=== PATIENT | female | born 2000 | race Two or more races ===

== ENCOUNTER 2021-07-13 11:55 | Emergency (ER) | payer MEDICAID ==
[~2021-07-13] VITALS: Ht 165.1 cm; Wt 66.7 kg
[2021-07-13 12:26] LABS: Urine Bacteria FEW /hpf (None Seen); Urine Blood Negative /uL (Negative); Urine Specific Gravity 1.016 (1.001-1.035); Urine WBC 38 /hpf (0 - 5)
[2021-07-13 14:05] VITALS: BP 122/77
[2021-07-13 14:43] LABS: Basophils # (auto) 0 10 ^3/uL (0-0.2); Basophils % (auto) 0.3 % (0.0-2.0); Eosinophils # (auto) 0 10 ^3/uL (0-0.8); Eosinophils % (auto) 0.6 % (0.0-7.0); Hematocrit 38.2 % (36.0-46.0); Hemoglobin 12.6 g/dL (12.2-16.2); Lymphocytes # (auto) 1.5 10 ^3/uL (0.4-5.4); Lymphocytes % (auto) 26.9 % (10.0-50.0); Mean Corpuscular Hemoglobin 29.5 pg (28.0-32.0); Mean Corpuscular Hgb Conc. 32.9 g/dL (32.0-36.0); Mean Corpuscular Volume 89.6 fL (80.0-100.0); Monocytes # (auto) 0.4 10 ^3/uL (0-1.3); Monocytes % (auto) 7.7 % (0.0-12.0); Neutrophils # (auto) 3.5 10 ^3/uL (1.6-8.6); Neutrophils % (auto) 64.5 % (37.0-80.0); Red Blood Cells 4.27 10^6/uL (4.0-5.20); Red Cell Distribution Width 13.8 % (11.8-14.3); White Blood Cell 5.5 10^3/uL (4.4-10.8)
== END 2021-07-13 16:06 | disposition home or self-care (01) ==
LOC: ER 11:55
DX: O23.11 Infections of bladder in pregnancy, first trimester (principal); Z3A.00 Weeks of gestation of pregnancy not specified
CPT/HCPCS: 36415; 76801; 76817; 81001; 81025; 84702; 85025

== ENCOUNTER 2023-06-21 02:29 | Emergency (ER) | payer MEDICAID ==
[~2023-06-21] VITALS: Ht 167.6 cm; Wt 72.7 kg
[2023-06-21 03:50] LABS: Basophils # (auto) 0 10 ^3/uL (0-0.2); Basophils % (auto) 0.5 % (0.0-2.0); Eosinophils # (auto) 0 10 ^3/uL (0-0.8); Eosinophils % (auto) 0.3 % (0.0-7.0); Hematocrit 39.9 % (36.0-46.0); Hemoglobin 13.4 g/dL (12.2-16.2); Lymphocytes # (auto) 1.6 10 ^3/uL (0.4-5.4); Lymphocytes % (auto) 19.4 % (10.0-50.0); Mean Corpuscular Hemoglobin 30.2 pg (28.0-32.0); Mean Corpuscular Hgb Conc. 33.6 g/dL (32.0-36.0); Mean Corpuscular Volume 89.9 fL (80.0-100.0); Monocytes # (auto) 0.5 10 ^3/uL (0-1.3); Neutrophils # (auto) 6.1 10 ^3/uL (1.6-8.6); Neutrophils % (auto) 73.8 % (37.0-80.0); Red Blood Cells 4.44 10^6/uL (4.0-5.20); Red Cell Distribution Width 14.1 % (11.8-14.3); White Blood Cell 8.2 10^3/uL (4.4-10.8)
[2023-06-21 04:08] LABS: Alanine Aminotransferase 10 U/L (7-40); Albumin 4.4 g/dL (3.2-4.8); Alkaline Phosphatase 49 U/L (46-116); Anion Gap 6 (5-15); Aspartate Aminotransferase 8 U/L (13-40); Blood Urea Nitrogen 6 mg/dL (9-23); Calcium 9.2 mg/dL (8.7-10.4); Carbon Dioxide 26 mmol/L (20-30); Chloride 107 mmol/L (98-107); Potassium 4.1 mmol/L (3.5-5.1); Sodium 139 mmol/L (136-145)
[2023-06-21 04:09] LABS: Bilirubin, Total 0.6 mg/dL (0.2-1.0); Total Protein 7.1 g/dL (5.7-8.2)
[2023-06-21 04:30] LABS: Glucose 103 mg/dL (74-106)
[2023-06-21] MEDS ORDERED: NAP500T GT (05:16)
[2023-06-21 05:30] VITALS: BP 112/69; PULSE 71; RESP 13; TEMP 97.9; O2SAT 98
== END 2023-06-21 05:37 | disposition home or self-care (01) ==
LOC: ER 02:29
DX: R51.9 Headache, unspecified (principal); R10.2 Pelvic and perineal pain; M79.602 Pain in left arm; M25.512 Pain in left shoulder; M25.552 Pain in left hip; Z79.899 Other long term (current) drug therapy; V49.9XXA Car occupant (driver) (passenger) injured in unspecified traffic accident, initial encounter; Y93.89 Activity, other specified; Y92.410 Unspecified street and highway as the place of occurrence of the external cause; Y99.8 Other external cause status
CPT/HCPCS: 36415; 70450; 72125; 73080; 73502; 80053; 84702; 85025

== ENCOUNTER 2025-03-02 09:01 | Emergency (ER) | payer MEDICAID ==
[~2025-03-02] VITALS: Ht 167.6 cm; Wt 66.0 kg
[~2025-03-02 09:01] MED LIST: NAP500T GT
[2025-03-02 09:56] VITALS: TEMP 98
--- NOTE | 2025-03-02 09:57 | ED.PDOC ---
History of Present Illness HPI Comments 24-year-old female presents to the ER no prior medical history associates chief complaint vaginal bleeding. Patient assumes that she is having a miscarriage do from having abnormal vaginal bleeding after being . Patient states that her LMP was January 07. Patient notes on having back pain with cramping in the abdomen area with taking was. Patient is currently M1. Denies chills, fever, N/V/D, SOB, CP. No other associated symptoms, modifiers, recent injuries or sick contacts present at this time. Chief Complaint: Vaginal Bleed Time Seen by MD: 09:25 Primary Care Provider: [facility] Reviewed Notes: Nurses Notes, Medications, Allergies Allergies: Coded Allergies: NO KNOWN ALLERGIES (Unverified , 07/13/21) Home Meds Active Scripts Naproxen (NAPROSYN TABLET) 500 Mg Tb, 500 MG GT BIDPRN PRN for 7 Days, #14 TAB Prov:ALBER BRADLEY MD 06/21/23 Information Source: Patient Mode of Arrival: Ambulatory Severity: Moderate Duration: Since onset Prehospital treatment: None Past Medical History PAST MEDICAL HISTORY: Denies Surgical History: Denies all surgeries LAMINATOR History: No Pertinent LAMINATOR History Family History Family History: Reviewed,noncontributory to illness, Unknown Social History Smoker: Non-Smoker Alcohol: Denies ETOH Use Drugs: Denies Drug Use Lives In: Home Constitutional: denies: chills, diaphoresis, fatigue, fever, malaise, sweats, weakness, others EENTM: denies: blurred vision, double vision, ear bleeding, ear discharge, ear drainage, ear pain, ear ringing, eye pain, eye redness, hearing loss, mouth pain, mouth swelling, nasal discharge, nose bleeding, nose congestion, nose pain, photophobia, tearing, throat pain, throat swelling, voice changes, others Respiratory: denies: cough, hemoptysis, orthopnea, SOB at rest, shortness of breath, SOB with excertion, stridor, wheezing, others Cardiovascular: denies: chest pain, dizzy spells, diaphoresis, Dyspnea on exertion, edema, irregular heart beat, left arm pain, lightheadedness, palpitations, PND, syncope, others Gastrointestinal: denies: abdomen distended, abdominal pain, blood streaked bowels, constipated, diarrhea, dysphagia, difficulty swallowing, hematemesis, melena, nausea, poor appetite, poor fluid intake, rectal bleeding, rectal pain, vomiting, others Genitourinary: reports: abnormal vagina bleeding, ; denies: burning, dyspareunia, dysuria, flank pain, frequency, hematuria, incontinence, pain, vagina discharge, urgency, others Neurological: denies: dizziness, fainting, headache, left sided numbness, left sided weakness, numbness, paresthesia, pre-existing deficit, right sided numbness, right sided weakness, seizure, speech problems, tingling, tremors, weakness, others Musculoskeletal: denies: back pain, gout, joint pain, joint swelling, muscle pain, muscle stiffness, neck pain, others Integumetry: denies: bruises, change in color, change in hair/nails, dryness, laceration, lesions, lumps, rash, wounds, others Allergic/Immunocompromised: denies: Difficulty Healing, Frequent Infections, Hives, Itching, others Hematologic/Lymphatic: denies: anemia, blood clots, easy bleeding, easy bruising, swollen glands, others Endocrine: denies: excessive hunger, excessive sweating, excessive thirst, excessive urination, flushing, intolerance to cold, intolerance to heat, unexplained weight gain, unexplained weight loss, others Psychiatric: denies: anxiety, bipolar disorder, depression, hopeless, panic disorder, schizophrenia, sleepless, suicidal, others All Other Systems: Reviewed and Negative Physical Exam General Appearance: Moderate Distress, Normal HEENT: Normal ENT Inspection, Pharynx Normal, TMs Normal Neck: Full Range of Motion, Non-Tender, Normal, Normal Inspection Respiratory: Chest Non-Tender, Lungs Clear, No Accessory Muscle Use, No Respiratory Distress, Normal Breath Sounds Cardiovascular: No Edema, No JVD, No Murmur, No Gallop, Normal Peripheral Pulses, Regular Rate/Rhythm Breast Exam: Deferred Gastrointestinal: No Organomegaly, Non Tender, No Pulsatile Mass, Normal Bowel Sounds, Soft Genitalia: Deferred Pelvic: Deferred Rectal: Deferred Extremities: No calf tenderness, Normal capillary refill, Normal inspection, Normal range of motion, Non-tender, No pedal edema Musculoskeletal : Apperance: Normal Neurologic: Alert, plating technician II-XII nml as Tested, No Motor Deficits, Normal Affect, Normal Mood, No Sensory Deficits Cerebellar Function: Normal Reflexes: Normal Skin: Dry, Normal Color, Warm Peripheral Pulses: 3+ Radial (R), 3+ Radial (L) Lymphatic: No Adenopathy Was a procedure done? Was a procedure done?: No Differential Dx Considerations may include: Vaginal bleeding X-Ray, Labs, Meds, VS Vital Signs Date Time Temp Pulse Resp B/P (MAP) Pulse Ox O2 Delivery O2 Flow Rate FiO2 03/02/25 10:48 65 14 121/78 03/02/25 10:22 74 18 117/81 03/02/25 10:01 69 20 96 Room Air* 0 21 03/02/25 09:56 98.0 72 18 127/62 (83) 98 98.0 03/02/25 09:18 98.6 100 17 157/77 (103) 97 98.6 Lab Test 03/02/25 09:56 03/02/25 09:15 Range/Units Beta HCG, Quantitative 88253.8 H 1.5-4.2 mIU/mL Urine Color Red H Yellow Urine Clarity Ex.turbid Clear Urine pH 6.5 5.0-9.0 Urine Specific [place] 1.018 1.001-1.035 Urine Protein 2+ H Negative Urine Ketones Negative Negative Urine Blood 3+ H Negative /uL Urine Nitrite Negative Negative Urine Bilirubin Negative Negative Urine Urobilinogen Normal Negative mg/dL Urine Leukocyte Esterase 1+ Negative /uL Urine RBC 50284 0 - 4 /hpf Urine WBC Clumps Present None Seen /hpf Urine Microscopic WBC 11 H 0-5 /HPF Urine Squamous Epithelial Cells None seen <5 /hpf Urine Bacteria None seen None Seen /hpf Urine Glucose Normal Normal mg/dL Current Medications Medications (Trade) Dose Ordered Sig/[facility] Route Start Time Stop Time Status Last Admin Morphine Sulfate 2 mg ONCE ONCE IV 03/02/25 10:15 03/02/25 10:17 DC 03/02/25 10:22 Ondansetron HCl (Zofran) 4 mg ONCE ONCE IV 03/02/25 10:15 03/02/25 10:17 DC 03/02/25 10:21 Sodium Chloride 1,000 ml @ 1,000 mls/hr Q1H ONCE IV 03/02/25 10:30 03/02/25 11:29 DC 03/02/25 10:21 Patient alert. Complaining of vaginal bleeding. Vitals stable. Establish intravenous access. Was given fluids pain UA shows UTI. She is . Ultrasound no acute process we will need to followed. Explained to the patient that she will need continue monitoring. She was given prescription of Keflex antibiotic. Was told to follow up with her primary care physician. Was told to come back if there is any problem. Time of 1ST Reevaluation: 09:55 Reevaluation 1ST: Unchanged Patient Education/Counseling: Diagnosis, Treatment, Prognosis Family Education/Counseling: No Family Present SEPSIS Sepsis Screen Date sepsis recognized/suspect: Mar 02, 2025 Time Sepsis recognized/suspect: 917 Recent Procedure: No On Antibiotic Therapy: No Respiratory Rate >20: No Heart Rate >90: Yes Temp<36 C (96.8 F) or >38.3 C: No SBP <90 or MAP <65 mmHG: No New Acute Mental Status Change: No Is the patient on CPAP, BIPAP,: No Physician Orders Ob Ultrasound Comp Less 14wks (03/02/25 10:03) Ob Trans Vaginal Us (03/02/25 ) Vital Signs Date Time Temp Pulse Resp B/P (MAP) Pulse Ox O2 Delivery O2 Flow Rate FiO2 03/02/25 10:48 65 14 121/78 03/02/25 10:22 74 18 117/81 03/02/25 10:01 69 20 96 Room Air* 0 21 03/02/25 09:56 98.0 72 18 127/62 (83) 98 98.0 03/02/25 09:18 98.6 100 17 157/77 (103) 97 98.6 Medications Medications Dose Ordered Sig/[facility] Route Start Time Stop Time Status Last Admin Dose Admin Morphine Sulfate 2 mg ONCE ONCE IV 03/02/25 10:15 03/02/25 10:17 DC 03/02/25 10:22 Ondansetron HCl 4 mg ONCE ONCE IV 03/02/25 10:15 03/02/25 10:17 DC 03/02/25 10:21 Sodium Chloride 1,000 ml @ 1,000 mls/hr Q1H ONCE IV 03/02/25 10:30 03/02/25 11:29 DC 03/02/25 10:21 Departure 1 Departure Time of Disposition: 12:40 Impression: Primary Impression: Vaginal bleeding affecting early Additional Impression: UTI (urinary tract infection) Qualified Codes: N30.01 - Acute cystitis with hematuria Disposition: HOME / SELF CARE / HOMELESS Condition: Good e-Prescriptions Cephalexin (KEFLEX CAPSULE) 250 Mg Cp 250 MG PO QID for 5 Days, #20 BOTTLE Prov: JENNIFER KIRK MD 03/02/25 Discharged With: Self Critical Care Note Critical Care Time?: No Stability Stability form required: No Heart Score Heart Score: Heart Score Response (Comments) Value History N/A 0 EKG N/A 0 Age N/A 0 Risk Factors N/A 0 Troponin N/A 0 Total 0 I personally scribed for JENNIFER KIRK MD ([email or web address]) on 03/02/25 at 09:57. Electronically submitted by Devaughn Deleon ([email or web address]). JENNIFER KIRK MD Mar 02, 2025 09:57
[2025-03-02 10:01] VITALS: PULSE 69; RESP 20; O2SAT 96
[2025-03-02] MEDS: ONDANSETRON HCL 4 MG/2 ML VIAL IV ONE (10:21)
[2025-03-02] MEDS: SODIUM CHLORIDE 0.9% 1,000 ML IV ONE (10:21)
[2025-03-02] MEDS: MORPHINE SULFATE INJ 2 MG/ml SYRG IV ONE (10:22)
[2025-03-02 11:18] LABS: Urine Bacteria None Seen /hpf (None Seen)
[2025-03-02 11:40] LABS: Urine Blood 3+ /uL (Negative); Urine Clarity Ex.Turbid (Clear); Urine Color Red (Yellow); Urine Protein, UAD 2+ (Negative); Urine Specific Gravity 1.018 (1.001-1.035); Urine Squamous Epithelial Cell None Seen /hpf (<5); Urine Urobilinogen Normal (Negative); Urine WBC 11 /HPF (0-5); Urine WBC Clumps PRESENT /hpf (None Seen); Urine pH 6.5 (5.0-9.0)
--- NOTE | 2025-03-02 12:34 | DVH ---
OB ULTRASOUND <14 WEEKS: HISTORY: bleeding TECHNIQUE: Multiple real-time grayscale sonographic images of the pelvis with duplex Doppler color f low, spectral and M-mode analysis. TRANSDUCERS: Transabdominal and transvaginal FINDINGS: The uterus measures 11.5 x 6.0 x 6.5 cm. Endometrium is thickened and measures 1.7 cm The cervix not well visualized. Right ovary measures 2.0 x 1.8 x 1.5 cm with normal Doppler color flow Left ovary measures 3.2 x 1.9 x 2.1 cm with normal Doppler color flow Cystic structure in the lower uterine segment in the cervix measures 2.2 cm. No pole is visualized. IMPRESSION: Cystic structure in the lower uterine segment in the cervix measuring 2.2 cm may represent a gestatio nal sac. No heart rate detected. Correlate with beta HCG and short-term follow-up pelvic ultras ound. Thickened endometrium measuring 1.7 cm.
[2025-03-02] MEDS ORDERED: CEPH250C PO (12:41)
[2025-03-02 13:19] VITALS: BP 115/82; PULSE 84; RESP 18; O2SAT 97
== END 2025-03-02 13:21 | disposition home or self-care (01) ==
LOC: ER 09:01
DX: O20.9 Hemorrhage in early pregnancy, unspecified (principal); O23.40 Unspecified infection of urinary tract in pregnancy, unspecified trimester; N39.0 Urinary tract infection, site not specified; R10.2 Pelvic and perineal pain; Z3A.00 Weeks of gestation of pregnancy not specified
CPT/HCPCS: 36415; 76801; 76817; 81001; 84702; 96374; 96375; 99285; J2270; J2405

== ENCOUNTER 2025-03-26 19:03 | Emergency (ER) | payer MEDICAID ==
[~2025-03-26] VITALS: Ht 167.6 cm; Wt 70.0 kg
[~2025-03-26 19:03] MED LIST changes: +CEPH250C PO
[2025-03-26 20:21] LABS: Urine Protein, UAD Negative (Negative)
[2025-03-26 20:32] VITALS: BP 119/73; PULSE 59; TEMP 97.9
[2025-03-26 20:33] VITALS: RESP 16; O2SAT 99
[2025-03-26] MEDS: ACETAMINOPHEN 325 MG TAB PO ONE (20:34)
--- NOTE | 2025-03-26 21:02 | ED.PDOC ---
History of Present Illness HPI Comments 24-year-old female with no reported PMHx presents with a chief complaint of follow-up s/p miscarriage. Patient states that she had a miscarriage x 2 weeks ago and had followed up with her doctor whom told her to seek an ultrasound from the ER to make sure there is no retained products of conception. Patient denies any pain at this time. Vital signs were stable on arrival. Patient is concerned that she may still have a urinary tract infection after completing a recent run of antibiotics. Chief Complaint: Urinary Time Seen by MD: 21:00 Primary Care Provider: [facility] Reviewed Notes: Nurses Notes, Medications, Allergies Allergies: Coded Allergies: NO KNOWN ALLERGIES (Unverified , 07/13/21) Home Meds Active Scripts Cephalexin (KEFLEX CAPSULE) 250 Mg Cp, 250 MG PO QID for 5 Days, #20 BOTTLE Prov:JENNIFER KIRK MD 03/02/25 Naproxen (NAPROSYN TABLET) 500 Mg Tb, 500 MG GT BIDPRN PRN for 7 Days, #14 TAB Prov:ALBER BRADLEY MD 06/21/23 Information Source: Patient Mode of Arrival: Ambulatory Severity: Moderate Timing: Days Duration: Since onset Prehospital treatment: None Past Medical History PAST MEDICAL HISTORY: Denies Past Medical History (Other): Patient has a miscarriage two weeks ago Surgical History: Denies all surgeries GRADE CHECKER History: No Pertinent GRADE CHECKER History Family History Family History: Reviewed,noncontributory to illness, Unknown Social History Smoker: Non-Smoker Alcohol: Denies ETOH Use Drugs: Denies Drug Use Lives In: Home Constitutional: denies: chills, diaphoresis, fatigue, fever, malaise, sweats, weakness, others EENTM: denies: blurred vision, double vision, ear bleeding, ear discharge, ear drainage, ear pain, ear ringing, eye pain, eye redness, hearing loss, mouth pain, mouth swelling, nasal discharge, nose bleeding, nose congestion, nose pain, photophobia, tearing, throat pain, throat swelling, voice changes, others Respiratory: denies: cough, hemoptysis, orthopnea, SOB at rest, shortness of breath, SOB with excertion, stridor, wheezing, others Cardiovascular: denies: chest pain, dizzy spells, diaphoresis, Dyspnea on exertion, edema, irregular heart beat, left arm pain, lightheadedness, palpitations, PND, syncope, others Gastrointestinal: denies: abdomen distended, abdominal pain, blood streaked bowels, constipated, diarrhea, dysphagia, difficulty swallowing, hematemesis, melena, nausea, poor appetite, poor fluid intake, rectal bleeding, rectal pain, vomiting, others Genitourinary: reports: dysuria; denies: abnormal vagina bleeding, burning, dyspareunia, flank pain, frequency, hematuria, incontinence, pain, , vagina discharge, urgency, others Neurological: denies: dizziness, fainting, headache, left sided numbness, left sided weakness, numbness, paresthesia, pre-existing deficit, right sided numbness, right sided weakness, seizure, speech problems, tingling, tremors, weakness, others Musculoskeletal: denies: back pain, gout, joint pain, joint swelling, muscle pain, muscle stiffness, neck pain, others Integumetry: denies: bruises, change in color, change in hair/nails, dryness, laceration, lesions, lumps, rash, wounds, others Allergic/Immunocompromised: denies: Difficulty Healing, Frequent Infections, Hives, Itching, others Hematologic/Lymphatic: denies: anemia, blood clots, easy bleeding, easy bruising, swollen glands, others Endocrine: denies: excessive hunger, excessive sweating, excessive thirst, excessive urination, flushing, intolerance to cold, intolerance to heat, unexplained weight gain, unexplained weight loss, others Psychiatric: denies: anxiety, bipolar disorder, depression, hopeless, panic disorder, schizophrenia, sleepless, suicidal, others All Other Systems: Reviewed and Negative ( PER HPI) Physical Exam General Appearance: No Apparent Distress (Patient did not appear to be a level of distress.), Normal HEENT: Normal ENT Inspection, Pharynx Normal, TMs Normal Neck: Full Range of Motion, Non-Tender, Normal, Normal Inspection Respiratory: Chest Non-Tender, Lungs Clear, No Accessory Muscle Use, No Respiratory Distress, Normal Breath Sounds Cardiovascular: No Edema, No JVD, No Murmur, No Gallop, Normal Peripheral Pulses, Regular Rate/Rhythm Breast Exam: Deferred Gastrointestinal: No Organomegaly, Non Tender, No Pulsatile Mass, Normal Bowel Sounds, Soft Genitalia: Deferred Pelvic: Deferred Rectal: Deferred Extremities: No calf tenderness, Normal capillary refill, Normal inspection, Normal range of motion, Non-tender, No pedal edema Musculoskeletal : Apperance: Normal Neurologic: Alert, No Motor Deficits, Normal Affect, Normal Mood, No Sensory Deficits Cerebellar Function: Normal Reflexes: Normal Skin: Dry, Normal Color, Warm Lymphatic: No Adenopathy Was a procedure done? Was a procedure done?: No Differential Dx Considerations may include: Retained products of conception, normal evaluation X-Ray, Labs, Meds, VS Vital Signs Date Time Temp Pulse Resp B/P (MAP) Pulse Ox O2 Delivery O2 Flow Rate FiO2 03/26/25 20:33 16 99 Room Air* 0 21 03/26/25 20:32 97.9 59 16 119/73 (88) 99 97.9 03/26/25 19:48 98.4 72 18 119/76 (90) 99 98.4 Lab Test 03/26/25 19:53 Range/Units Urine Color Light-yellow Yellow Urine Clarity Clear Clear Urine pH 7.0 5.0-9.0 Urine Specific [place] 1.017 1.001-1.035 Urine Protein Negative Negative Urine Ketones Negative Negative Urine Blood Negative Negative /uL Urine Nitrite Negative Negative Urine Bilirubin Negative Negative Urine Urobilinogen Normal Negative mg/dL Urine Leukocyte Esterase 2+ Negative /uL Urine RBC 1 0 - 4 /hpf Urine Microscopic WBC 2 0-5 /HPF Urine Squamous Epithelial Cells Few <5 /hpf Urine Bacteria None seen None Seen /hpf Urine Glucose Normal Normal mg/dL Urine Test Negative Negative X-Ray, Labs, Meds, VS Comment All studies performed the ED were evaluated by me personally. Urinalysis showed a mild urinary tract infection. Ultrasound ruled out any retained process conception. Patient will be dispensed a prescription for antibiotics to address her UTI. Time of 1ST Reevaluation: 22:17 Reevaluation 1ST: Improved Consultation: PCP Patient Education/Counseling: Diagnosis, Treatment Family Education/Counseling: Diagnosis, Treatment, No Family Present SEPSIS Sepsis Screen Date sepsis recognized/suspect: Mar 26, 2025 Time Sepsis recognized/suspect: 1949 Recent Procedure: No On Antibiotic Therapy: No Respiratory Rate >20: No Heart Rate >90: No Temp<36 C (96.8 F) or >38.3 C: No SBP <90 or MAP <65 mmHG: No New Acute Mental Status Change: No Is the patient on CPAP, BIPAP,: No Physician Orders Pelvic (03/26/25 20:02) Vital Signs Date Time Temp Pulse Resp B/P (MAP) Pulse Ox O2 Delivery O2 Flow Rate FiO2 03/26/25 20:33 16 99 Room Air* 0 21 03/26/25 20:32 97.9 59 16 119/73 (88) 99 97.9 03/26/25 19:48 98.4 72 18 119/76 (90) 99 98.4 Departure 1 Departure Time of Disposition: 22:17 Impression: Primary Impression: UTI (urinary tract infection) Additional Impression: Complete miscarriage Disposition: HOME / SELF CARE / HOMELESS Condition: Stable Additional Instructions: Advise utilizing antibiotics as directed until completion. e-Prescriptions Nitrofurantoin Monohydrate Mac (Macrobid) 100 Mg Cap 100 MG PO BID for 3 Days, #6 CAP Prov: JEAN CLAUDE HENDRICKS PAC 03/26/25 Discharged With: Self, Friend Critical Care Note Critical Care Time?: No Stability Stability form required: No Heart Score Heart Score: Heart Score Response (Comments) Value History N/A 0 EKG N/A 0 Age N/A 0 Risk Factors N/A 0 Troponin N/A 0 Total 0 I personally scribed for JEAN CLAUDE HENDRICKS PAC ([email or web address]) on 03/26/25 at 21:02. Electronically submitted by Niall Quiñones ([email or web address]). JEAN CLAUDE HENDRICKS PAC Mar 26, 2025 21:02
--- NOTE | 2025-03-26 21:55 | DVH ---
INDICATION: CONFRIM NO RPOC - URINE TEST TECHNIQUE: Multiple real-time grayscale transabdominal sonographic images along with color and duplex Doppler of the uterus and ovaries were obtained. COMPARISON: None FINDINGS: The uterus measures 9.5 x 5.6 x 4.3 cm cm. The endometrial stripe measures 4.4 mm. The right ovary measures 2.9 x 2.4 x 2.2 cm. Volume of the right ovary is 8.4 cc The left ovary measures 3.5 x 1.9 x 2.4 cm. Volume of the left ovary is 8.6 cc. Anechoic mass left ovary 1.5 x 1.1 x 1.2 cm Subsequent color and duplex Doppler interrogation of the ovaries demonstrated symmetric vascular flow to both ovaries, though this does not exclude the possibility of torsion due to the dual blood suppl y. IMPRESSION: 1. Grossly unremarkable pelvic ultrasound. 2. Small anechoic mass left ovary most likely a follicle
[2025-03-26] MEDS ORDERED: NITR-87 PO (22:18)
== END 2025-03-26 22:30 | disposition home or self-care (01) ==
LOC: ER 19:03
DX: O03.9 Complete or unspecified spontaneous abortion without complication (principal); O03.88 Urinary tract infection following complete or unspecified spontaneous abortion; Z79.899 Other long term (current) drug therapy
CPT/HCPCS: 76856; 81001; 81025